=== PATIENT | female | born 1945 | race Caucasian/White ===

== ENCOUNTER 2024-04-26 22:52 | Emergency (ER) | payer MEDICARE ==
[~2024-04-26] VITALS: Ht 165.1 cm; Wt 68.9 kg
[2024-04-26 23:00] VITALS: TEMP 98.9
[2024-04-27 00:04] VITALS: PULSE 58; RESP 17
[2024-04-27 00:42] VITALS: BP 167/56; PULSE 63; RESP 14; O2SAT 100
[2024-04-27] MEDS: ACETAMINOPHEN 325 MG TAB PO STA (00:54)
== END 2024-04-27 00:54 | disposition home or self-care (01) ==
LOC: ER 22:55
DX: H53.8 Other visual disturbances (principal); R03.0 Elevated blood-pressure reading, without diagnosis of hypertension; R51.9 Headache, unspecified; I10 Essential (primary) hypertension; E78.5 Hyperlipidemia, unspecified
CPT/HCPCS: 70450; 99283